=== PATIENT | male | born 1965 | race American Indian/Alaskan Native ===

== ENCOUNTER 2016-08-07 13:16 | Day surgery (SDC) | payer OTHER ==
[~2016-08-07 13:16] MED LIST: ANCEF/STERILE WATER 2 GM/20 ML IV NR
--- NOTE | 2016-08-07 14:04 | Anesthesia Consultation ---
Anesthesia Consult and Med Hx Date of service: 08/07/16 - Airway Anesthetic Teeth Evaluation: Good ROM Head & Neck: Adequate Mental/Hyoid Distance: Adequate Mallampati Class: Class II Intubation Access Assessment: Good - Pulmonary Exam CTA: Yes - Cardiac Exam Cardiac Exam: No Murmur - Pre-Operative Health Status ASA Pre-Surgery Classification: ASA3 - Pulmonary Hx Smoking: No Hx Sleep Apnea: No (DANNIELLE PRE SCREEN HIGH RISK.) - Cardiovascular System Hx Hypertension: Yes (X 4 YRS) - Endocrine Hx Non-Insulin Dependent Diabetes: Yes - Other Systems Hx Cancer: No
--- NOTE | 2016-08-07 14:04 | Anesthesia Day of Surgery ---
Anesthesia Day of Surgery - Day of Surgery Patient Examined: Yes Patient H&P Reviewed: Yes Patient is NPO: Yes
[2016-08-07] MEDS ORDERED: VERSED IV NR (15:00)
[2016-08-07] MEDS ORDERED: PEPCID PO NR (15:00)
[2016-08-07] MEDS ORDERED: LACTATED RINGERS 1,000 ML IV SCH (15:00)
[2016-08-07] MEDS ORDERED: DILAUDID ONE (15:20)
[2016-08-07] MEDS ORDERED: DIPRIVAN 10 MG/ML IV ONE (15:20)
[2016-08-07] MEDS ORDERED: WATER FOR IRRIG STERILE IR ONE ×2 (15:51)
[2016-08-07] MEDS ORDERED: OMNIPAQUE (300 MG) IR ONE (15:51)
[2016-08-07] MEDS ORDERED: XYLOCAINE MPF 2% ONE (16:07)
[2016-08-07] MEDS ORDERED: ZOFRAN ONE (16:08)
[2016-08-07] MEDS ORDERED: TORADOL ONE (16:08)
[2016-08-07] MEDS ORDERED: ePHEDrine SULFATE ONE (16:29)
[2016-08-07] MEDS ORDERED: NACL 0.9% 1000 ML 1,000 ML ONE (17:11)
--- NOTE | 2016-08-07 17:16 | Short Stay Summary ---
Short Stay Documentation Date of service: 08/07/16 - History H&P: obtained from office - Allergies and Medications Current Medications: Allergies No Known Allergies Allergy (Verified 07/30/16 15:33) Home Medications Medication Instructions Recorded Confirmed Last Taken Type Aspirin [Adult Low Dose Aspirin EC] 81 mg PO DAILY 07/30/16 08/07/16 07/24/16 History Losartan/Hydrochlorothiazide 1 each PO DAILY 07/30/16 08/07/16 08/06/16 History [Hyzaar 100-25 TAB] amLODIPine [Norvasc] 10 mg PO DAILY 07/30/16 08/07/16 08/06/16 History Active Medications Cefazolin Sodium (Ancef/Sterile Water 2 Gm/20 Ml) 2 gm IV PREOP NR Stop: 08/07/16 23:59 Famotidine (Pepcid) 20 mg PO PREOP NR Stop: 08/07/16 20:00 Last Admin: 08/07/16 14:49 Dose: 20 mg Lactated Ringer's (Lactated Ringers) 1,000 mls @ 100 mls/hr IV DIRECT VALERI Last Admin: 08/07/16 14:49 Dose: 100 mls/hr Midazolam HCl (Versed) 2 mg IV PREOP NR Stop: 08/07/16 23:59 Last Admin: 08/07/16 14:55 Dose: 2 mg - Brief post op/procedure progress note Date of procedure: 08/07/16 Pre-op diagnosis: rt distal ureteral stone, ureterocele Post-op diagnosis: same Procedure: cysto, rpg, meatotomy, ureteroscopy, holmiun laser ,stent with external string Anesthesia: GETA Surgeon: MG MUNSON Estimated blood loss: minimal Pathology: list (stone with surgeon) Condition: stable - Hospital course Hospital course: cipro, norco, & post op info on chart - Disposition Condition at discharge: Stable Disposition: DISCHARGED TO HOME OR SELFCARE Short Stay Discharge Plan Follow up with: PRIMARY CARE,MD [Primary Care Provider] - 7 Days
--- NOTE | 2016-08-07 17:32 | Post Anesthesia Evaluation ---
- Post Anesthesia Evaluation Patient Participated: Yes Airway Patent: Yes Stable Respiratory Function: Yes Nausea/Vomiting: No Temp > 96.8F: Yes Pain Manageable: Yes Adequeate Hydration: Yes Anesthesia Complications: No
[2016-08-07] MEDS ORDERED: NORCO 5/325 PO ONE (18:20)
[2016-08-07 19:49] VITALS: BP 128/80
--- NOTE | 2016-08-07 22:50 | Operative Report ---
PREOPERATIVE DIAGNOSES: 1. Right distal ureteral stone, 10 mm. 2. Right ureterocele. POSTOPERATIVE DIAGNOSES: 1. Right distal ureteral stone, 10 mm. 2. Right ureterocele. PROCEDURE: Cystoscopy, bilateral retrograde pyelograms, right ureteral meatotomy, right ureteroscopy, holmium laser lithotripsy, basket stone extraction, right double-J stent placement (6 Armenian 24 cm with an external string). SURGEON: Karlos Yee MD ANESTHESIA: General. ESTIMATED BLOOD LOSS: Minimal. FLUIDS: Crystalloid. COMPLICATIONS: No complications. INDICATIONS: This patient is a 51-year-old gentleman seen in the office with right flank pain. CT of abdomen and pelvis revealed a 10 mm distal stone and an ureterocele. We discussed options. He agreed to proceed with surgical intervention. DESCRIPTION OF PROCEDURE: The patient was taken to the operative suite, placed in supine position. After adequate general anesthesia, placed in a dorsal lithotomy position, prepped and draped in a sterile fashion. Pancystourethroscopy was performed with a 22 Armenian Storz cystoscope. No urethral or prostate abnormalities. He did have a high riding bladder neck. Both ureteral orifices were in normal position. No tumors were noted. You could see a stone emanating from the right distal ureter with dilation consistent with the ureterocele. Two 0.035 Glidewires were placed. Meatotomy scissors were used to excise the roof, however, portion of the stone could be appreciated. Rigid ureteroscopy was performed. A 360 micron holmium laser was used, laser lithotripsy was performed starting at 4 espana going up to 10. Adequate fragmentation could be appreciated. The fragments were extracted. A 6-Armenian 24 cm double-J stent was left indwelling with an external string. His bladder was drained. Rectal exam was benign. He was extubated and taken to recovery room. [facility] and follow up in the office. JOB# [id number] [facility]
--- NOTE | 2016-08-08 08:13 | Fluoroscopy Report ---
RETROGRADE PYELOGRAM: History: Right ureteral stone, hematuria. The left pyelogram is normal. There is a large filling defect measuring up to 1 cm the distal right ureter consistent with a stone. Holmium laser, grasper and basket was used to extract the stone. A right ureteral stent was placed which is in adequate position on the final image. Please correlate with the procedural report by Dr. Yee. Impression: Removal of a distal right ureteral stone and placement of a right ureteral stent. Normal left pyelogram.
== END 2016-08-07 18:40 | disposition home or self-care (01) ==
LOC: OR 13:16
PROVIDERS: ATTEND Urology
DX: N20.1 Calculus of ureter (principal); N28.89 Other specified disorders of kidney and ureter; I10 Essential (primary) hypertension; E11.9 Type 2 diabetes mellitus without complications; Z79.899 Other long term (current) drug therapy
CPT/HCPCS: 36415; 52290; 52356; 74420; 82962; 84132; A4217; C1758; C1769; C2617; J0690; J1170; J2250; J2405; J2704; J7030; J7120; Q9967; J1885